=== PATIENT | male | born 1985 | race Caucasian/White ===

== ENCOUNTER 2017-12-18 18:54 | Emergency (ER) | payer SELFPAY ==
[~2017-12-18] VITALS: Ht 187.9 cm; Wt 108.9 kg
[2017-12-18 19:33] LABS: URINE AMPHETAMINES < 1000 (1000ng/ml); URINE BARBITURATES < 200 (200ng/ml); URINE BENZODIAZEPINES < 200 (200ng/ml); URINE CANNABINOIDS (THC) < 50 (50ng/ml); URINE COCAINE < 300 (300ng/ml); URINE METHADONE < 300 (300ng/ml); URINE OPIATES < 300 (300ng/ml)
[2017-12-18 19:35] LABS: URINE PHENCYCLIDINE < 25 (25ng/ml)
== END 2017-12-18 19:50 | disposition home or self-care (01) ==
LOC: ED 18:54
PROVIDERS: Nurse Practitioner Family
DX: Z00.00 Encounter for general adult medical examination without abnormal findings (principal)